=== PATIENT | female | born 1970 | race Caucasian/White ===

== ENCOUNTER → 2023-07-13 06:44 | Outpatient (REF) | payer OTHER, SELFPAY | LOC: WDC 06:44 | PROVIDERS: ATTENDING PHYSICIAN Internal Medicine | DX: Z12.31 Encounter for screening mammogram for malignant neoplasm of breast (principal) | CPT/HCPCS: 77063; 77067 ==

== ENCOUNTER → 2023-07-20 09:51 | Outpatient (REF) | payer OTHER, SELFPAY | LOC: WDC 09:51 | PROVIDERS: ATTENDING PHYSICIAN Internal Medicine | DX: R92.8 Other abnormal and inconclusive findings on diagnostic imaging of breast (principal) | CPT/HCPCS: 77065 ==

== ENCOUNTER 2023-09-07 12:58 | Emergency (ER) | payer OTHER, SELFPAY ==
[2023-09-07 12:59] VITALS: BMI 28.3
[2023-09-07 13:01] VITALS: BP 129/81
[2023-09-07 13:07] VITALS: BP 129/81
[2023-09-07] MEDS: TORADOL 15 MG IV (13:15)
[2023-09-07] MEDS: ZOFRAN 4 MG IV (13:19)
[2023-09-07 13:39] LABS: % Basophils 0.5 % (0-2); % Eosinophils 3.4 % (0-6); % Immature Granulocytes 0.2 % (0-0.5); % Lymphocytes 31.8 % (20.5-51.1); % Monocytes 8.2 % (1.7-9.3); % Neutrophils 55.9 % (42.2-75.2); Absolute Eosinophils 0.3 10^3/uL (0-0.7); Absolute Lymphocytes 2.8 10^3/uL (1.2-3.4); Absolute Monocytes 0.7 10^3/uL (0.1-0.6); Absolute Neutrophils 4.9 10^3/uL (1.4-6.5); Hematocrit 39.5 % (37.0-47.0); Hemoglobin 13.6 g/dL (12.0-16.0); Mean Corp Hgb Conc. 34.4 g/dL (33.0-37.0); Mean Corpuscular Hgb 29.8 pg (27.0-31.0); Mean Corpuscular Volume 86.4 fL (81.0-99.0); Mean Platelet Volume 10.8 fL (7.4-10.4); Nucleated Red Blood Cells % 0 %; Platelet Count 311 10^3/uL (130-400); Red Blood Cell Count 4.57 10^6/uL (4.20-5.40); Red Cell Dist. Width 12.6 % (11.5-14.5); White Blood Cell Count 8.8 10^3/uL (4.8-10.8)
[2023-09-07] MEDS: DILAUDID 0.5 MG IV ×2 (13:52→15:18)
--- NOTE | 2023-09-07 13:56 | ED.GENMED ---
History of Present Illness
General
Chief Complaint: Abdominal Pain
Source: patient
Exam Limitations: none
Time Seen by Provider: 09/07/23 13:50
History of Present Illness
History of Present Illness:
53 year old female presents with sudden onset left lower abdominal and flank pain. This is sharp in nature with associated vomiting. No fever. She does note increased urinary frequency. No prior pain like this. SHe has history of uterine cancer
with resulting hysterectomy. She has history of DM. She has been taking Monjaro with recent dose increase. No chest pain or shortness of breath.
Past History
Past History
ED Past Medical History: Other (migraines) and Other (uterine CA 2015 no chemo/XRT)
ED Past Surgical History: None and Gynecological (hysterectomy)
Social History
Tobacco: Non-smoker
Alcohol: None
Personal:
Living: with family
Phy Exam
Physical Exam
Physical Exam:
General: uncomfortable appearing female, NAD
HEENT: NC/AT
Heart: tachycardic but regular
Lungs: CTA
Abd: soft, tender to LLQ and left flank
Ext: no cyanosis or edema
Skin: Warm, no rashes
Course
Orders/Labs/Results
Orders:
Orders
09/07/23 13:14
Ketorolac [Toradol] 15 mg .ROUTE .STK-MED ONE
Ondansetron Injectable [Zofran] 4 mg .ROUTE .STK-MED ONE
09/07/23 13:15
Ketorolac [Toradol] 15 mg IV NOW STA
09/07/23 13:19
Ondansetron Injectable [Zofran] 4 mg IV NOW STA
09/07/23 13:21
Complete Blood Count/With Diff Urgent
Comprehensive Metabolic Panel Urgent
Lipase Urgent
Comment: LIPASE ADDED ON BY FLOOR 2PM 09-07-23
09/07/23 13:49
Electrocardiogram (*1) Urgent
Reason for Study: Tachycardia
EKG- Treatment ONCE
09/07/23 13:50
HYDROmorphone [Dilaudid] 0.5 mg IV NOW STA
09/07/23 13:51
HYDROmorphone [Dilaudid] 0.5 mg .ROUTE .STK-MED ONE
09/07/23 13:57
Add On- LAB Urgent
Tests Added?: lipase
CT Abd/pel Without Iv Or Oral Urgent
Comment:
Reason For Exam: left flank pain
09/07/23 14:05
0.9% Sodium Chloride 1000 ml [Nss] 1,000 ml IV BOLUS
09/07/23 14:18
Urinalysis Reflex To Culture Urgent
Date Specimen was Collected: 09/07/23
Time Specimen was Collected: 14:08
Urine Microscopic Reflex Cult Urgent
09/07/23 15:11
HYDROmorphone [Dilaudid] 0.5 mg IV NOW STA
Abnormal Lab Results
09/07/23 09/07/23
13:21 14:18
MPV 10.8 H fL
(7.4-10.4)
Absolute Monos (auto) 0.7 H 10^3/uL
(0.1-0.6)
BUN 20 H mg/dl
(7-17)
Glucose 173 H mg/dl
(70-99)
Urine Ketones 3+ A
(Negative)
Ur Occult Blood Reflex 3+ A
(Negative)
Leukocyte Esterase Rfl Trace A
(Negative)
09/07/23 13:21
09/07/23 13:21
Vital Signs
Initial and Last Documented VS:
Initial Vital Signs
BP
129/81
09/07/23 13:01
Last Documented Vital Signs
Temp Pulse Resp BP Pulse Ox
97.4 F 95 21 100/50 96
09/07/23 13:07 09/07/23 14:30 09/07/23 14:30 09/07/23 14:15 09/07/23 14:30
MDM/Problems Addressed
Differential Diagnosis Includes:
Left flank pain. Consider renal colic vs pyelonephritis vs diverticulitis.
Labs and urine pending. will check CT of abd/pelvis
Zofran, toradol, dilaudid ordered.
*Critical Care Note
Total Time (30-74mins, 75-104mins- exclusive of procedures): Not Applicable
Update Note
Update Note:
CT demonstrates 3.2 mm stone in the distal left ureter with associated hydronephrosis. Patient feeling somewhat more comfortable after multiple rounds of pain medication. Urinalysis without infection. Will discharge home with pain medicine nausea
medicine and Flomax and urology follow-up. Return precautions were given
ED Attending Note
-
Portions of this chart may have been created with voice recognition software.� Occasional wrong word or��sound alike� substitutions may have occurred due to the inherent limitations of voice recognition software.
Discharge Plan
Departure
Patient Disposition: Home (Routine Discharge)
Date of Disposition: 09/07/23
Time of Disposition: 15:54
Patient with high blood pressure during this ER visit?: No
Discharge Problem:
Kidney stone
Instructions: Kidney Stones (DC)
Prescriptions:
New
oxycodone-acetaminophen [Percocet] 5-325 mg tablet
1 tab PO Q6HPRN PRN (Reason: pain) Qty: 10 0RF
ondansetron 4 mg tablet,disintegrating
4 mg PO Q8H PRN (Reason: nausea and vomiting) Qty: 10 0RF
tamsulosin [Flomax] 0.4 mg capsule
0.4 mg PO DAILY Qty: 14 0RF
No Action
prochlorperazine maleate 10 MG tablet
10 mg PO Q6HPRN PRN (Reason: headache/nausea) Qty: 12 0RF
Referrals:
Enedina Epstein MD [Family Provider] -
John Gill MD [Active] -
Activity Restrictions/Additional Instructions:
Drink plenty of fluids. Use Zofran if needed for nausea and prescribed pain medicine as needed for severe pain. Use Flomax daily. Follow-up with urology. Return here if you develop increased pain fever vomiting or other concerning findings
Interventions
Interventions:
*Risk Screen - Suicide Last Done: 09/07/23 13:09
*General Assessment Last Done: 09/07/23 13:09
*Neglect/Abuse Screening Last Done: 09/07/23 13:09
ED- Fall Risk Assessment Last Done: 09/07/23 13:59
*ED COVID-19 Vaccine History Last Done: 09/07/23 13:09
OC-Susqtn-Tvpxeyghvi Assessment Last Done: 09/07/23 13:59
Discharge Date and Time
Print Language: FRISIAN
[2023-09-07 13:59] LABS: ALT (SGPT) 23 U/L (0-35); AST (SGOT) 26 U/L (14-36); Albumin 4.5 g/dl (3.5-5.0); Alkaline Phosphatase 125 U/L (38-126); Blood Urea Nitrogen 20 mg/dl (7-17); Carbon Dioxide 23 mmol/L (22-30); Chloride 102 mmol/L (98-107); Estimated Creatinine Clearance 60 ml/min; Glucose 173 mg/dl (70-99); Potassium 4.6 mmol/L (3.5-5.1); Sodium 137 mmol/L (135-145); Total Bilirubin 1.1 mg/dl (0.2-1.3); Total Protein 7.1 g/dl (6.3-8.2); eGFR > 60.00
[2023-09-07] MEDS: NSS 1000 IV (14:11)
[2023-09-07 14:15] VITALS: BP 100/50
[2023-09-07 14:31] LABS: Urine Albumin Trace (Neg - Trace); Urine Bilirubin Negative (Negative); Urine Character Clear (Clear); Urine Color Yellow; Urine Glucose Negative (Negative); Urine Ketone 3+ (Negative); Urine Leukocyte Trace (Negative); Urine Nitrite Negative (Negative); Urine Occult Blood 3+ (Negative); Urine Specific Gravity 1.015 (<1.030); Urine Urobilinogen Negative (Neg - 1+)
[2023-09-07 14:37] LABS: Lipase 109 U/L (23-300)
[2023-09-07 16:00] VITALS: BP 110/78
[2023-09-07 16:15] LABS: Urine Red Blood Cell 30-40 /HPF (0-2)
== END 2023-09-07 16:26 | disposition home or self-care (01) ==
LOC: EMR 12:58
PROVIDERS: Emergency Medicine; Physician Assistant; EMERGENCY PHYSICIAN Emergency Medicine; FAMILY PHYSICIAN Internal Medicine
DX: N13.2 Hydronephrosis with renal and ureteral calculous obstruction (principal); R11.10 Vomiting, unspecified; G43.909 Migraine, unspecified, not intractable, without status migrainosus; E11.9 Type 2 diabetes mellitus without complications; Z85.42 Personal history of malignant neoplasm of other parts of uterus; Z79.899 Other long term (current) drug therapy; Z88.8 Allergy status to other drugs, medicaments and biological substances; Z91.030 Bee allergy status; Z91.041 Radiographic dye allergy status; Z90.710 Acquired absence of both cervix and uterus
CPT/HCPCS: 99284; 96374; 96375 ×2; 96361; 96376; 74176; 80053; 81003; 81015; 83690; 85025; 93005

== ENCOUNTER 2023-09-12 04:37 | Observation (INO) | payer OTHER, SELFPAY ==
[2023-09-11 23:14] VITALS: BP 138/74
[2023-09-11 23:49] LABS: % Basophils 0.3 % (0-2); % Eosinophils 0.7 % (0-6); % Immature Granulocytes 0.3 % (0-0.5); % Monocytes 4.3 % (1.7-9.3); % Neutrophils 85.4 % (42.2-75.2); Absolute Eosinophils 0.1 10^3/uL (0-0.7); Absolute Lymphocytes 1.2 10^3/uL (1.2-3.4); Absolute Monocytes 0.6 10^3/uL (0.1-0.6); Absolute Neutrophils 11.8 10^3/uL (1.4-6.5); Hematocrit 39.6 % (37.0-47.0); Hemoglobin 13.7 g/dL (12.0-16.0); Mean Corp Hgb Conc. 34.6 g/dL (33.0-37.0); Mean Corpuscular Hgb 29.8 pg (27.0-31.0); Mean Corpuscular Volume 86.1 fL (81.0-99.0); Mean Platelet Volume 10.3 fL (7.4-10.4); Nucleated Red Blood Cells % 0 %; Platelet Count 242 10^3/uL (130-400); Red Cell Dist. Width 12.6 % (11.5-14.5); White Blood Cell Count 13.8 10^3/uL (4.8-10.8)
[2023-09-12] VITALS (8 sets, daily range): BP systolic 99–119; BP diastolic 53–95; BMI 28.0; BMI 26.8
[2023-09-12 00:08] LABS: Blood Urea Nitrogen 20 mg/dl (7-17); Calcium 9.9 mg/dl (8.4-10.2); Carbon Dioxide 27 mmol/L (22-30); Chloride 100 mmol/L (98-107); Glucose 107 mg/dl (70-99); Potassium 4.2 mmol/L (3.5-5.1); Sodium 136 mmol/L (135-145); eGFR > 60.00
[2023-09-12 00:33] LABS: Urine Albumin Negative (Neg - Trace); Urine Bilirubin Negative (Negative); Urine Character Clear (Clear); Urine Color Yellow; Urine Glucose Negative (Negative); Urine Ketone 2+ (Negative); Urine Leukocyte Negative (Negative); Urine Nitrite Negative (Negative); Urine Occult Blood 3+ (Negative); Urine Specific Gravity 1.005 (<1.030); Urine Urobilinogen Negative (Neg - 1+)
--- NOTE | 2023-09-12 00:59 | ED.GENMED ---
History of Present Illness
General
Chief Complaint: Flank Pain
Time Seen by Provider: 09/12/23 00:17
History of Present Illness
History of Present Illness:
53-year-old female with history of type 2 diabetes presenting to the emergency department for worsening left flank pain. Patient was seen in the hospital on 09/06, at which time she was diagnosed with 3 mm left-sided kidney stone. She was
prescribed Percocet. She reports that pain had been controlled, however this evening, pain worsened. She tried taking 2 Percocets and a Zofran, however pain uncontrolled with persistent nausea and vomiting. Denies fever. Denies chest pain. Pain
is in the left flank and left lower abdomen. Denies prior history of kidney stones. Reports some dysuria. Otherwise denies acute medical complaints
Past History
Past History
ED Past Medical History: Other (migraines) and Other (uterine CA 2015 no chemo/XRT)
ED Past Surgical History: None and Gynecological (hysterectomy)
Social History
Tobacco: Non-smoker
Alcohol: None
Personal:
Living: with family
Phy Exam
Physical Exam
Physical Exam:
General: Well-appearing, no clinical signs of dehydration, nontoxic and in no acute distress
HEENT: protecting airway
Neck: appears supple
CV: Normal heart rate, regular rhythm, no evidence of cyanosis
Resp: No accessory muscle use, no increased work of breathing, lungs clear to auscultation bilaterally
Abd: Soft and non-distended, no tenderness to palpation, mild left CVA tenderness
Extremities: No deformities, no swelling, no erythema, pulses and sensation intact
Neuro: alert, no focal neurologic deficit
: deferred
Rectal: deferred
Psych: Normal affect
Skin: Intact
Course
Orders/Labs/Results
Orders:
Orders
09/11/23 23:35
BMP [Basic Metabolic Panel] Urgent
Complete Blood Count/With Diff Urgent
09/12/23 00:19
Urinalysis Reflex To Culture Urgent
Date Specimen was Collected: 09/12/23
Time Specimen was Collected: 00:15
Urine Microscopic Reflex Cult Urgent
09/12/23 00:45
CT Abd/pel Without Iv Or Oral Urgent
Comment:
Reason For Exam: worsening L-flank pain, known 3mm stone
09/12/23 00:46
0.9% Sodium Chloride 1000 ml [Nss] 1,000 ml IV BOLUS
HYDROmorphone [Dilaudid] 1 mg IV NOW STA
Ondansetron HCl [Zofran] 4 mg PO NOW STA
09/12/23 00:57
Ondansetron Injectable [Zofran] 4 mg .ROUTE .STK-MED ONE
09/12/23 01:00
Ondansetron Injectable [Zofran] 4 mg IV NOW STA
Abnormal Lab Results
09/11/23 09/12/23
23:35 00:19
WBC 13.8 H 10^3/uL
(4.8-10.8)
Absolute Neuts (auto) 11.8 H 10^3/uL
(1.4-6.5)
Neutrophils % 85.4 H %
(42.2-75.2)
Lymphocytes % 9.0 L %
(20.5-51.1)
BUN 20 H mg/dl
(7-17)
Glucose 107 H mg/dl
(70-99)
Urine Ketones 2+ A
(Negative)
Ur Occult Blood Reflex 3+ A
(Negative)
Urine RBC 11-15 A /HPF
(0-2)
Urine Bacteria (Reflex) Few A
(Negative)
09/11/23 23:35
09/11/23 23:35
Vital Signs
Initial and Last Documented VS:
Initial Vital Signs
Temp Pulse Resp BP Pulse Ox
99 F 90 20 138/74 99
09/11/23 23:14 09/11/23 23:14 09/11/23 23:14 09/11/23 23:14 09/11/23 23:14
Last Documented Vital Signs
Temp Pulse Resp BP Pulse Ox
99 F 85 16 109/53 99
09/11/23 23:14 09/12/23 02:00 09/12/23 02:00 09/12/23 02:00 09/12/23 02:00
MDM/Problems Addressed
MDM/Problems Addressed:
53-year-old female presenting with worsening left-sided flank and abdominal pain with known history of 3 mm stone, diagnosed 09/06. Vital signs are normal.
On exam, patient in no acute distress, slightly uncomfortable secondary to pain. Overall benign examination, with mild left flank tenderness. No tenderness to the abdomen. Continue to suspect discomfort from patient's known kidney stone. Imaging
reviewed from 09/06, 3 mm stone with mild hydronephrosis. No signs of infected stone from prior visit. Laboratory analysis repeated today, does show new leukocytosis. For this reason we will repeat urinalysis and CT imaging to ensure no worsening
obstructive uropathy. Patient reports improvement of pain after Dilaudid during prior hospital visit. Will administer Dilaudid here
02:40 -pain has improved. Urine without sign of infection. CT shows that stone is at the left UVJ, again with mild hydronephrosis. Patient does not feel comfortable going home given her pain. For this reason we will admit for intractable pain.
Holding antibiotics, afebrile. Urology aware, will see in the morning.
*Critical Care Note
Total Time (30-74mins, 75-104mins- exclusive of procedures): Not Applicable
ED Attending Note
-
Portions of this chart may have been created with voice recognition software.� Occasional wrong word or��sound alike� substitutions may have occurred due to the inherent limitations of voice recognition software.
Discharge Plan
Departure
Prescriptions:
No Action
oxycodone-acetaminophen [Percocet] 5-325 mg tablet
1 tab PO Q6HPRN PRN (Reason: pain) Qty: 10 0RF
ondansetron 4 mg tablet,disintegrating
4 mg PO Q8H PRN (Reason: nausea and vomiting) Qty: 10 0RF
tamsulosin [Flomax] 0.4 mg capsule
0.4 mg PO DAILY Qty: 14 0RF
Rx Instructions:
given on last ED for kidney stone
atorvastatin 10 mg Tablet
10 mg PO DAILY
cholecalciferol (vitamin D3) [Vitamin D3] 50 mcg (2,000 unit) Capsule
50 mcg PO DAILY
Mounjaro
Referrals:
Enedina Garcia MD [Family Provider] -
Interventions
Interventions:
*Risk Screen - Suicide Last Done: 09/11/23 23:14
*General Assessment Last Done: 09/11/23 23:14
*Neglect/Abuse Screening Last Done: 09/11/23 23:14
ED- Fall Risk Assessment Last Done: 09/11/23 23:14
*ED COVID-19 Vaccine History Last Done: 09/11/23 23:14
WJ-Mtwiis-Fhlutwrgmu Assessment Last Done: 09/12/23 00:20
ED-Female Genitourinary Assessment Last Done: 09/12/23 00:20
Discharge Date and Time
Print Language: MALAY
[2023-09-12] MEDS: ZOFRAN 4 MG IV (01:00)
[2023-09-12] MEDS: NSS 1000 IV ×5 (01:01→18:39)
[2023-09-12] MEDS: DILAUDID 1 MG IV (01:01)
[2023-09-12 01:37] LABS: Urine Bacteria Few (Negative); Urine White Cell 0-2 /HPF (0-5)
--- NOTE | 2023-09-12 03:13 | HPS.HSE ---
Family Physician
-
Family Physician: Enedina Garcia MD
Chief Complaint
-
Lt flank pain and nausea/ vomiting
History of Present Illness
53F Diabetic recently seen at ER (09/05/23) diagnosed 3.2 mm the distal left ureteric stone wih Lt mild hydronephrosis. DC'd home on Percocet and pain was well controlled .
- She retuned to ER due to worsening pain in the left flank and left lower abdomen
- Associated pain and nausea not relieved by 2 Percocet and a Zofran
- Reports persistent nausea and vomiting.
- Denies fever
Medical History
Past Medical History
Past Medical History: Reports Other
Additional Past Medical History:
Migraines
Uterine CA 2015 no chemo/XRT
Past Surgical History: Reports Gynocological (Hysterectomy)
Social History
Tobacco: Non-smoker
Alcohol: None
Drug: None
Personal:
Family History
Family History: Not pertinent
Allergies / Home Medications
Allergies reflects when Allergies were last updated in [facility].
Home Medications with original date entered in [facility]
Allergy/Medication List:
Allergies
Allergy/AdvReac Type Severity Reaction Status Date / Time
gallium [Gallium] Allergy Hives Verified 09/11/23 23:14
heparin Allergy Hives Verified 09/11/23 23:14
bee stings Allergy swelling Uncoded 09/11/23 23:14
of chest
Home Medications
ondansetron 4 mg disintegrating tablet 4 mg PO Q8H PRN nausea and vomiting #10 tabs 09/07/23
oxycodone-acetaminophen 5 mg-325 mg tablet (Percocet) 1 tab PO Q6HPRN PRN pain #10 tabs 09/07/23
tamsulosin 0.4 mg capsule (Flomax) 0.4 mg PO DAILY #14 caps 09/07/23
Mounjaro 09/12/23
atorvastatin 10 mg tablet 10 mg PO DAILY 09/12/23
cholecalciferol (vitamin D3) 50 mcg (2,000 unit) capsule (Vitamin D3) 50 mcg PO DAILY 09/12/23
Review of Systems
-
Constitutional: Reports No Symptoms
EENT: Reports No Symptoms
Respiratory: Reports No Symptoms
Cardiac: Reports No Symptoms
Abdomen/GI: Reports No Symptoms
: Reports See HPI and Flank Pain (lt side )
Musculoskeletal: Reports No Symptoms
Skin: Reports No Symptoms
Neurological: Reports No Symptoms
Endocrine: Reports No Symptoms
Hematologic/Lymphatic: Reports No Symptoms
Psych: Reports No Symptoms
Physical Exam
Vital Signs
Vital Signs
Temp Pulse Resp BP Pulse Ox
99 F 85 16 109/53 99
09/11/23 23:14 09/12/23 02:00 09/12/23 02:00 09/12/23 02:00 09/12/23 02:00
Physical Exam
General: Well Developed, No Apparent Distress, Comfortable and Conversant
HEENT: Anicteric
Respiratory: Clear
Cardiac: S1/S2 and Regular Rhythm
GI: Soft, Non Tender, Non Distended and Normal Bowel Sounds
Genito-urinary: No costovertebral tender
Neuro: AO x 3
Psych: Calm
Laboratory Results
-
09/11/23 23:35
09/11/23 23:35
Data Reviewed
-
CT Scan: Report Reviewed by me
Lab Data: Labs Reviewed by me
Old Records: Reviewed
Impression/Plan
-
Reviewed VS: T99 HR 85 BP 110/55 POx 99
Data
WCC 13.8
INR 0.95
BUN 20
nl eGFR
UA: WCC 0-2 RBC 11-15
09/11 CT AP WO contrast : [facility] report
- 4 mm stone at Lt UVJ with mild lt HN
- No BW obstruction
- Nl GB and Appdx
09/05/23 CT Abd/pel Without Iv Or Oral
- Mild Lt hydronephrosis and hydroureter secondary to a 3.2 mm calculus within the distal left ureter.
ASSESSMENT & PLAN
Pending Rx reconciliation
Intractable pain, N/V due to 4mm distal Lt ureteric stone @ UVJ
Associated mild Lt HN
US not consistent with UTI
- Unremarkable UA - will hold off ABx for now
- Pain control with IV Dilaudid PRN
- anti emetics PRN
- cont. Flomax
- IVF
- NPO til seen by Uro
- Uro consulted
DMT2
- Hold Mounjaro for now
- add ISS low
HLD
- atorvastatin
DVT Px: SCD
Code: Full
Obs MS
[2023-09-12] MEDS: FLOMAX 0.4 MG PO (07:36)
[2023-09-12] MEDS: LIPITOR 10 MG PO (07:36)
--- NOTE | 2023-09-12 09:41 | W.PN.URO.CBU ---
Today's Communication / Plan
-
may eat possible d/c lter will increase iv f rate pt may eat use percoccet prn pain onlt use iv dialudd if prcoce fails
Assessment / Plan
-
trial of passage transition to po analgsics possible d/c today if pain controlable by po rxs but otherwis npo and reevakluate in for uretoscopy call if fvr chillds
Diagnosis
-
Date of Service: September 12, 2023
-
Patient Diagnosis:colic due to first stone a 4 mm distal left uretral stone no fevr pain controlled
Post Op Day:
Subjective
-
2/10 pain no nausea no fevr
Objective
-
Vital Signs
Temp Pulse Resp BP Pulse Ox
98.3 F 76 12 111/72 99
09/12/23 07:00 09/12/23 07:00 09/12/23 07:00 09/12/23 07:00 09/12/23 07:00
Review of Systems
-
: Flank Pain
Physical Exam
-
General - well developed, well nourished, no acute distress non toxic
Chest - clear bilaterally
Abdomen - soft, non-tender, positive bowel sounds, no CVAT, no incisional pain or distention
Genitalia - normal
Rectal - normal
Skin - warm & dry with no rash
Neuro - AOx3, no motor deficits
Extremities - no clubbing, no cyanosis, no edema
Incision - clean, dry
Dressing - clean, dry, intact
Care Review
Data Reviewed
Discussed with: Hospitalist and Nursing
CT Scan: Image Pers Reviewed
[2023-09-12 10:09] LABS: Hematocrit 35.7 % (37.0-47.0); Hemoglobin 12.1 g/dL (12.0-16.0); Mean Corp Hgb Conc. 33.9 g/dL (33.0-37.0); Mean Corpuscular Hgb 29.7 pg (27.0-31.0); Mean Corpuscular Volume 87.5 fL (81.0-99.0); Mean Platelet Volume 10.5 fL (7.4-10.4); Platelet Count 235 10^3/uL (130-400); Red Blood Cell Count 4.08 10^6/uL (4.20-5.40); Red Cell Dist. Width 12.7 % (11.5-14.5); White Blood Cell Count 8.7 10^3/uL (4.8-10.8)
[2023-09-12] MEDS: NORCO 5/325 2 TABLET PO ×2 (10:19→15:52)
--- NOTE | 2023-09-12 11:12 | CM ---
Addendum entered by Kacie Aguirre 09/12/23 11:22:
PCP: Enedina Garcia
Pharmacy: [facility]
Original Note:
IA completed by CM. Observation form signed by patient & placed in chart. Copy given to patient.
Dx. Intractable pain.
Hx: migraines, diabetic, uterine ca 2014 no tx, hysterectomy
Lives in a 2 story home with & 2 children. 12 steps to bathroom
PLOF: Independent, drives.
Plan: Discharge when stable. Return to home. No needs anticipated.
[2023-09-12 11:17] LABS: Blood Urea Nitrogen 15 mg/dl (7-17); Calcium 9.3 mg/dl (8.4-10.2); Carbon Dioxide 26 mmol/L (22-30); Chloride 105 mmol/L (98-107); Estimated Creatinine Clearance 65 ml/min; Glucose 79 mg/dl (70-99); Potassium 4.2 mmol/L (3.5-5.1); Sodium 139 mmol/L (135-145); eGFR > 60.00
--- NOTE | 2023-09-12 13:54 | W.PN.UPDATE ---
Update Note
Progress Note Update
Nonbillable note
Left UVJ obstructing stone-was present initially on 09/07/2023 CT abdomen pelvis, patient was sent home with conservative management. Came back for worsening pain and repeat CT scan showing stone has not passed. Urology evaluated and intending to
maintain patient on high IV fluid rate to help flush the stone. If does not pass the stone will need to go for cystoscopy/stent possibly tomorrow. No signs superimposed UTI. Monitor off of antibiotics. Pain controlled with Percocet.
[2023-09-12 15:00] LABS: Hematocrit 35.5 % (37.0-47.0); Hemoglobin 11.9 g/dL (12.0-16.0); Mean Corp Hgb Conc. 33.5 g/dL (33.0-37.0); Mean Corpuscular Hgb 29.7 pg (27.0-31.0); Mean Corpuscular Volume 88.5 fL (81.0-99.0); Mean Platelet Volume 10.2 fL (7.4-10.4); Platelet Count 232 10^3/uL (130-400); Red Blood Cell Count 4.01 10^6/uL (4.20-5.40); Red Cell Dist. Width 12.7 % (11.5-14.5); White Blood Cell Count 8.2 10^3/uL (4.8-10.8)
[2023-09-13] MEDS: NSS IV (04:53)
[2023-09-13 07:00] VITALS: BP 109/68
[2023-09-13 08:27] LABS: Hematocrit 37.1 % (37.0-47.0); Hemoglobin 12.5 g/dL (12.0-16.0); Mean Corp Hgb Conc. 33.7 g/dL (33.0-37.0); Mean Corpuscular Hgb 30.1 pg (27.0-31.0); Mean Corpuscular Volume 89.4 fL (81.0-99.0); Mean Platelet Volume 10.3 fL (7.4-10.4); Platelet Count 224 10^3/uL (130-400); Red Blood Cell Count 4.15 10^6/uL (4.20-5.40); Red Cell Dist. Width 12.7 % (11.5-14.5); White Blood Cell Count 6.9 10^3/uL (4.8-10.8)
[2023-09-13] MEDS: NORCO 5/325 2 TABLET PO (09:19)
[2023-09-13] MEDS: LIPITOR 10 MG PO (09:20)
[2023-09-13] MEDS: FLOMAX 0.4 MG PO (09:20)
[2023-09-13 10:04] LABS: Blood Urea Nitrogen 11 mg/dl (7-17); Calcium 9.6 mg/dl (8.4-10.2); Carbon Dioxide 24 mmol/L (22-30); Chloride 105 mmol/L (98-107); Estimated Creatinine Clearance 75 ml/min; Glucose 94 mg/dl (70-99); Potassium 4.3 mmol/L (3.5-5.1); Sodium 138 mmol/L (135-145); eGFR > 60.00
--- NOTE | 2023-09-13 10:07 | W.PN.HOSP.TC ---
Today's Communication/Plan
-
d/c home
Assessment / Plan
Assessment / Plan
Left ureter obstructive stone
Left hydronephrosis
-CT a/p showing persistent 4mm stone at left UVJ
-pain controlled with oral percocet
-Trial of IVF did not help pass the stone
-Patient wants to f/u in office if does not pass the stone in 5days, planned for Tue
-discussed with urology
Type II DM
-resume back mounjaro at discharge
HLD
- atorvastatin
DVT Px: SCD
Code: Full
More than 30 minutes spent in discharge including
Final examination of the patient
Summarizing hospital stay
Instructions for continuing care to all relevant caregivers
Preparation of discharge records, prescriptions, and referral forms
Total time spent (in minutes): 38 mins
Anticipated Discharge: Today
Subjective/Interval History
-
Date of Service: September 13, 2023
no pain overnight
able to tolerate diet
Objective Data
-
Labs:
Laboratory Results
09/13/23
08:12
WBC 6.9
Hgb 12.5
Hct 37.1
Plt Count 224
Sodium 138
Potassium 4.3
Chloride 105
Carbon Dioxide 24
BUN 11
Creatinine 0.7
Glucose 94
Calcium 9.6
Vital Signs:
Vital Signs
Temp Pulse Resp BP Pulse Ox
98.4 F 77 16 109/68 98
09/13/23 07:00 09/13/23 07:00 09/13/23 07:00 09/13/23 07:00 09/13/23 07:00
I&O
09/12/23 09/13/23 09/14/23
06:59 06:59 06:59
Intake Total 2290 / 2290
Output Total 1300 / 1300
Balance 990 / 990
Review of Systems
-
Respiratory: Reports No Symptoms
Cardiac: Reports No Symptoms
Abdomen/GI: Reports No Symptoms
Physical Exam
-
General: No Apparent Distress and Comfortable
HEENT: Negative Oxygen
Respiratory: Clear to Auscultation
Cardiac: Regular Rhythm and S1/S2; Negative Murmur or Rub
GI: Soft, Nontender, Nondistended and Normal Bowel Sounds
Musculoskeletal: No Edema
Neuro: Awake, Alert, Oriented, No Motor Deficits and Nonfocal/Grossly Intact
Psych: Calm
--- NOTE | 2023-09-13 11:17 | CM ---
Addendum entered by Lola Castro 09/13/23 12:10:
Per nurse, spouse provided transport home
Original Note:
Plan: Discharge to home today; no services needed
--- NOTE | 2023-09-13 11:31 | W.PN.URO.CBU ---
Today's Communication / Plan
-
home
Assessment / Plan
-
trial of passage transition to po analgsics possible d/c today if pain controlable by po rxs will d/c but pt to call if worsening sxs will put on op e=schedue electively mnext kisha ward pending clinical couse
Diagnosis
-
Date of Service: September 13, 2023
-
Patient Diagnosis:
Post Op Day:
Patient Diagnosis:colic due to first stone a 4 mm distal left uretral stone no fevr pain controlled
Post Op Day:
Subjective
-
no fevr cg=hills paon controlled by oxycosodne no n/v woud like to try pasing stone athome
Objective
-
Vital Signs
Temp Pulse Resp BP Pulse Ox
98.4 F 77 16 109/68 98
09/13/23 07:00 09/13/23 07:00 09/13/23 07:00 09/13/23 07:00 09/13/23 07:00
Intake and Output
09/12/23 09/13/23 09/14/23
06:59 06:59 06:59
Intake Total 2290 / 2290
Output Total 1300 / 1300
Balance 990 / 990
Intake:
Oral fluids 1989
IV fluids (Total) 300 / 300
Output:
Urine, Voided 1300 / 1300
Other:
Number of approximated MODERATE 2
amounts of urine
Laboratory Results
09/13/23 08:12
09/13/23 08:12
Review of Systems
-
: Flank Pain
Physical Exam
-
General - well developed, well nourished, no acute distress
Chest - clear bilaterally
Abdomen - soft, non-tender, positive bowel sounds, no CVAT, no incisional pain or distention
Genitalia - normal
Rectal - normal
Skin - warm & dry with no rash
Neuro - AOx3, no motor deficits
Extremities - no clubbing, no cyanosis, no edema
Incision - clean, dry
Dressing - clean, dry, intact
Care Review
Data Reviewed
Discussed with: Hospitalist and Nursing
CT Scan: Image Pers Reviewed
--- NOTE | 2023-09-14 14:15 | W.DCSUMMARY ---
Discharge Summary
Discharge Data
Date of Admission: 09/12/23
Date of Discharge: 09/13/23
-
Pending Results: No
Hospital Course
Discharging Physician : Dr Geo [place]
Disposition : Home
Primary care physician : Dr Enedina Ramos
Principal Discharge diagnosis :
Left ureterovesical junction 3.5-4mm stone
Chronic Discharge diagnosis :
Type 2 diabetes mellitus
Hyperlipidemia
Hospital Course :
Patient is a 53-year-old female with above-mentioned past medical history came to ER for having nonresolving left pelvic/flank pain. Patient was in ER 5 days before and was found to having 3.5 mm left UVJ stone which was planned to be managed
conservatively with expectation of patient passing stone at home. Unfortunately symptoms persisted and pain was unbearable and came to ER for further evaluation. Repeat CT abdomen pelvis showing persistent stone at UVJ with some hydronephrosis.
Urology was involved in care who recommended trial of IRAD IV fluid to help flush the stone. Patient was tentatively put on list for a cystoscopy procedure and retrieval of stone although patient decided to wait few more days. Procedure was
postponed and to be done outpatient basis next week if patient does not pass stone. Patient was prescribed oral pain medication and was discharged home. No ongoing urinary tract infection and no antibiotics provided. Patient was discharged home
at this point.
Important imaging findings :
None
Procedure findings :
None
Discharge Plan
-
Patient Disposition: Home (Routine Discharge)
Discharge Diagnosis/Procedures: Left UVJ obstructing stone of 4mm
Condition: Fair
Diet: Regular
Activity: As tolerated
Driving Restrictions: As prior to admission
Bathing Restrictions: OK to Shower
Referrals:
Orestes Mathias MD [Active] - (call dr mathias [phone] for follow up if pass stone bring to office or dr ramos office for stone analysis also call if fever )
Enedina Ramos MD [Family Provider] - in one week
Prescriptions:
Continued
oxycodone-acetaminophen [Percocet] 5-325 mg tablet
1 tab PO Q6HPRN PRN (Reason: pain) Qty: 10 0RF
ondansetron 4 mg tablet,disintegrating
4 mg PO Q8H PRN (Reason: nausea and vomiting) Qty: 10 0RF
tamsulosin [Flomax] 0.4 mg capsule
0.4 mg PO DAILY Qty: 14 0RF
Rx Instructions:
given on last ED for kidney stone
atorvastatin 10 mg Tablet
10 mg PO DAILY
cholecalciferol (vitamin D3) [Vitamin D3] 50 mcg (2,000 unit) Capsule
50 mcg PO DAILY
Mounjaro
Discharge Orders:
Discharge Patient (As Directed); Ordered 09/13/23
Ordered By: Geo [place]
Discharge Date and Time
Discharge Date/Time: 09/13/23 11:09
Print Language: TURKMEN
== END 2023-09-13 11:09 | disposition home or self-care (01) ==
LOC: 4 WEST ACU 04:37
PROVIDERS: Emergency Medicine; ADMITTING PHYSICIAN Internal Medicine; ATTENDING PHYSICIAN Hospitalist; CONSULT PHYSICIAN Specialist; EMERGENCY PHYSICIAN Student in an Organized Health Care Education/Training Program; FAMILY PHYSICIAN Family Medicine
DX: N13.2 Hydronephrosis with renal and ureteral calculous obstruction (principal); R11.2 Nausea with vomiting, unspecified; R10.9 Unspecified abdominal pain; E78.5 Hyperlipidemia, unspecified; E11.9 Type 2 diabetes mellitus without complications; Z85.42 Personal history of malignant neoplasm of other parts of uterus; Z90.710 Acquired absence of both cervix and uterus; Z88.8 Allergy status to other drugs, medicaments and biological substances; Z91.030 Bee allergy status; Z79.85 Long-term (current) use of injectable non-insulin antidiabetic drugs
CPT/HCPCS: 74176; 80048; 81003; 81015; 85025; 85027; 99285; G0378

== ENCOUNTER 2023-09-18 06:40 | Day surgery (SDC) | payer OTHER, SELFPAY ==
[2023-09-18] VITALS (13 sets, daily range): BP systolic 90–117; BP diastolic 52–81; BMI 26.2
--- NOTE | 2023-09-18 10:12 | PTCARENOTE ---
Urine culture sent
[2023-09-18 10:35] LABS: Glucose - Point of Care 95 mg/dl (70-99)
[2023-09-18 13:10] LABS: Glucose - Point of Care 86 mg/dl (70-99)
[2023-09-18 14:16] LABS: Glucose - Point of Care 96 mg/dl (70-99)
[2023-09-18] MEDS: Pyridium 200 MG PO (14:24)
[2023-09-18] MEDS: ROXICODONE 5 MG PO (15:51)
== END 2023-09-18 16:08 | disposition home or self-care (01) ==
LOC: SDS 06:40
PROVIDERS: ATTENDING PHYSICIAN Specialist
DX: N20.2 Calculus of kidney with calculus of ureter (principal)
CPT/HCPCS: 52352; 52332; 74018; 76000; 82365; 82962; 87086; C2617

== ENCOUNTER → 2023-12-27 17:18 | Outpatient (REF) | payer OTHER, SELFPAY | LOC: RAD 17:18 | PROVIDERS: ATTENDING PHYSICIAN Family Medicine | DX: Z85.42 Personal history of malignant neoplasm of other parts of uterus (principal); Z87.42 Personal history of other diseases of the female genital tract | CPT/HCPCS: 76830; 76856 ==

== ENCOUNTER 2024-05-26 06:25 | Day surgery (SDC) | payer OTHER, SELFPAY ==
[2024-05-26 07:18] LABS: Glucose - Point of Care 87 mg/dl (70-99)
== END 2024-05-26 08:43 | disposition home or self-care (01) ==
LOC: GI 06:25
PROVIDERS: ATTENDING PHYSICIAN Internal Medicine Gastroenterology; FAMILY PHYSICIAN Family Medicine
DX: K62.5 Hemorrhage of anus and rectum (principal); R19.4 Change in bowel habit; K64.8 Other hemorrhoids; K57.30 Diverticulosis of large intestine without perforation or abscess without bleeding; K63.89 Other specified diseases of intestine; K29.50 Unspecified chronic gastritis without bleeding; K62.1 Rectal polyp
CPT/HCPCS: 45380; 88305; 82962

== ENCOUNTER → 2024-09-23 19:00 | Outpatient (REF) | payer OTHER, SELFPAY | LOC: WDC 19:00 | PROVIDERS: ATTENDING PHYSICIAN Family Medicine | DX: Z12.39 Encounter for other screening for malignant neoplasm of breast (principal); Z12.31 Encounter for screening mammogram for malignant neoplasm of breast | CPT/HCPCS: 77063; 77067 ==